=== PATIENT | male | born 1940 | race Caucasian/White ===

== ENCOUNTER 2018-07-26 04:58 | Emergency (ER) | payer MEDICARE, OTHER ==
[2018-07-26 05:20] VITALS: O2SAT 94
[2018-07-26 05:54] LABS: BASOPHIL % 0.1 % (0.0-0.4); Basophil (Absolute #) 0.01 (0-0.4); Eosinophil % 1.5 % (0.00-5.0); Eosinophil (Absolute #) 0.16 (0-0.5); Granulocytes % 76.2 % (36.0-66.0); Hematocrit 41.3 % (42-50); Hemoglobin 13.7 gm/dl (12.5-18.0); Lymphocyte (Absolute #) 1.02 (1.0-4.6); Lymphocytes % 9.5 % (24.0-44.0); Mean Corpuscular Hemoglobin 29.5 pg (26-32); Mean Corpuscular Hgb Concent. 33.2 g/dl (32-36); Mean Platelet Volume 11.2 fl (6-9.5); Monocyte (Absolute #) 1.36 (0.0-1.3); Monocytes % 12.7 % (0.0-12.0); Platelet Count 191 K/mm3 (150-450); Red Blood Count 4.64 M/mm3 (4.1-5.6); Red Cell Distribution Width 14.1 % (11.5-14.0); White Blood Count 10.7 K/mm3 (4.0-10.5)
[2018-07-26 06:00] LABS: ALBUMIN 3.6 g/dL (3.5-5.0); ANION GAP 16.2 MEQ/L (5-15); BILIRUBIN,TOTAL 0.6 mg/dL (0.2-1.3); Creatinine 1 1.27 mg/dL (0.66-1.25); Potassium 4.4 mmol/L (3.5-5.1); Total Protein 6.3 g/dL (6.3-8.2)
--- NOTE | 2018-07-26 06:01 | ERPHSYRPT ---
- History of Present Illness Time Seen by Provider: 07/26/18 05:49 Historian: patient Exam Limitations: no limitations Patient Subjective Stated Complaint: july 21 noticed pain in rt lower rib area that radiates to back. pt went to see chiropractor. pt states he "pulled a rib loose" about 4 years ago and the chiropractor fixed it. this time it didnt work. pt states pain is sometimes absent and sometimes intolerable and pt can't catch his breath or sleep. pt states there were no precipitating factors prior to onset of pain Triage Nursing Assessment: small bruise noted in area pt states hurts. no tenderness reported on palpation. respirations easy and unlabored at this time and pt states he is currently pain free. Physician History: Patient is a 78-year-old who with his complaining of the onset of right sided lower rib pain that began on 07/21/18. The pain has been intermittent. He was not able to sleep tonight because of the pain. Upon entry to the ER, the pain now has resolved. He denies injury or trauma to the region. On he bent over to picker and packer a log for his wood-burning stove and coughed at the same time. He then experienced a sudden onset of this pain. He saw his chiropractor who was not able to provide relief. A similar rib pain happened 5 years ago and his chiropractor was able to provide relief. He denies fever or chills. He denies any problems with eating or urinating. He has been up most of the night with pain. His past medical history significant for any stones, laser ablation of the kidney stones about 5-6 weeks ago, BPH, and DM. He denies any abdominal surgeries. Timing/Duration: day(s) (5), intermittent, resolved prior to arrival, sudden Activities at Onset: none Quality: sharpness, stabbing Location: other (right lower ribs) Chest Pain Radiation: back Severity of Pain-Max: moderate Severity of Pain-Current: none Modifying Factors: Improves With: coughing Associated Symptoms: No nausea, No vomiting, No palpitations, No heartburn, No abdominal pain, No hurts to breathe, No diaphoresis, No fever Prior Chest Pain/Cardiac Workup: no prior chest pain Nitro Today/Relief: no nitro taken today Aspirin Treatment Today: no aspirin today Allergies/Adverse Reactions: No Known Drug Allergies Allergy (Unverified 05/30/14 07:58) Home Medications: Cetirizine HCl [Zyrtec] 10 mg PO DAILY PRN PRN 07/27/13 [History] Aspirin [Aspirin EC] 81 mg PO DAILY 05/30/14 [History] Metformin HCl 500 mg [Glucophage 500 MG] 500 mg PO BIDWM 07/26/18 [History ] Tamsulosin HCl 07/26/18 [History] Hx Tetanus, Diphtheria Vaccination/Date Given: No Hx Influenza Vaccination/Date Given: Yes Hx Pneumococcal Vaccination/Date Given: Yes Immunizations Up to Date: Yes - Review of Systems Constitutional: No Fever, No Chills Eyes: No Symptoms Ears, Nose, & Throat: No Symptoms Respiratory: No Cough, No Dyspnea Cardiac: Chest Pain (rib pain) Abdominal/Gastrointestinal: No Abdominal Pain, No Nausea, No Vomiting, No Diarrhea Genitourinary Symptoms: No Dysuria Musculoskeletal: No Back Pain, No Neck Pain Skin: No Rash Neurological: No Dizziness, No Focal Weakness, No Sensory Changes Psychological: No Symptoms Endocrine: No Symptoms Hematologic/Lymphatic: No Symptoms Immunological/Allergic: No Symptoms All Other Systems: Reviewed and Negative - Past Medical History Pertinent Past Medical History: Yes Neurological History: No Pertinent History ENT History: No Pertinent History Cardiac History: No Pertinent History Respiratory History: No Pertinent History Endocrine Medical History: No Pertinent History Musculoskeletal History: No Pertinent History GI Medical History: No Pertinent History History: No Pertinent History Psycho-Social History: No Pertinent History Male Reproductive Disorders: No Pertinent History Other Medical History: prostate cancer 4 years ago - Past Surgical History Past Surgical History: Yes Neuro Surgical History: No Pertinent History Cardiac: No Pertinent History Respiratory: No Pertinent History Gastrointestinal: No Pertinent History Genitourinary: No Pertinent History Musculoskeletal: No Pertinent History Male Surgical History: No Pertinent History Other Surgical History: tonsils, kidney stone surgery 6 weeks ago - Social History Smoking Status: Never smoker Exposure to second hand smoke: No Drug Use: none Patient Lives Alone: No - Nursing Vital Signs Nursing Vital Signs: Initial Vital Signs Temperature 98.5 F 07/26/18 05:05 Pulse Rate 73 07/26/18 05:05 Respiratory Rate 18 07/26/18 05:05 Blood Pressure 171/84 07/26/18 05:05 O2 Sat by Pulse Oximetry 94 L 07/26/18 05:05 Pain Scale Pain Intensity 1 - Physical Exam General Appearance: no apparent distress, alert Eye Exam: PERRL/EOMI, eyes nml inspection Ears, Nose, Throat Exam: normal ENT inspection, moist mucous membranes Neck Exam: normal inspection, non-tender, supple, full range of motion Respiratory Exam: normal breath sounds, lungs clear, No respiratory distress Cardiovascular Exam: regular rate/rhythm, normal heart sounds Gastrointestinal/Abdomen Exam: soft, normal bowel sounds, No tenderness, No mass Rectal Exam: not done Back Exam: normal inspection, No CVA tenderness, No vertebral tenderness Extremity Exam: normal inspection, normal range of motion Neurologic Exam: alert, oriented x 3, cooperative, normal mood/affect, sensation nml, No motor deficits Skin Exam: normal color, warm, dry SpO2 Interpretation: normal SpO2: 94 Oxygen Delivery: Room Air - Radiology Exams Chest X-ray Interpretation: Interpreted by me, Negative, No Fracture, No Pneumothorax Right Ribs X-ray Interpretation: Interpreted by me, Negative, No Fracture, No Pneumonia Ordered Tests: Active Orders 24 hr Category Date Time Status CHEST 2 VIEWS (PA AND LAT) Stat Exams 07/26/18 06:23 Taken RIBS UNILATERAL Stat Exams 07/26/18 06:23 Taken AMYLASE Stat Lab 07/26/18 05:45 Completed CBC W DIFF Stat Lab 07/26/18 05:45 Completed CMP Stat Lab 07/26/18 05:45 Completed CULTURE,URINE Stat Lab 07/26/18 06:42 Received LIPASE Stat Lab 07/26/18 05:45 Completed TROPONIN Q3H Lab 07/26/18 05:45 Completed TROPONIN Q3H Lab 07/26/18 09:00 Ordered TROPONIN Q3H Lab 07/26/18 12:00 Ordered TROPONIN Q3H Lab 07/26/18 15:00 Ordered TROPONIN Q3H Lab 07/26/18 18:00 Ordered UA W/RFX UR CULTURE Stat Lab 07/26/18 06:42 Completed Lab/Rad Data: Laboratory Result Diagrams 07/26/18 05:45 07/26/18 05:45 Laboratory Results 07/26/18 07/26/18 07/26/18 Range/Units 06:42 05:45 05:45 WBC (4.0-10.5) K/mm3 RBC (4.1-5.6) M/mm3 Hgb (12.5-18.0) gm/dl Hct (42-50) % MCV (78-100) fl MCH (26-32) pg MCHC (32-36) g/dl RDW (11.5-14.0) % Plt Count (150-450) K/mm3 MPV (6-9.5) fl Gran % (36.0-66.0) % Eos # (Auto) (0-0.5) Absolute Lymphs (auto) (1.0-4.6) Absolute Monos (auto) (0.0-1.3) Lymphocytes % (24.0-44.0) % Monocytes % (0.0-12.0) % Eosinophils % (0.00-5.0) % Basophils % (0.0-0.4) % Absolute Granulocytes (1.4-6.9) Basophils # (0-0.4) Sodium 138 (137-145) mmol/L Potassium 4.4 (3.5-5.1) mmol/L Chloride 106 (98-107) mmol/L Carbon Dioxide 20 L (22-30) mmol/L Anion Gap 16.2 H (5-15) MEQ/L BUN 22 H (9-20) mg/dL Creatinine 1.27 H (0.66-1.25) mg/dL Estimated GFR 58.4 ML/MIN Glucose 157 H (74-106) mg/dL Calcium 9.0 (8.4-10.2) mg/dL Total Bilirubin 0.60 (0.2-1.3) mg/dL AST 13 L (17-59) U/L ALT 15 (0-50) U/L Alkaline Phosphatase 92 (38-126) U/L Troponin I < 0.012 (0.000-0.034) ng/mL Serum Total Protein 6.3 (6.3-8.2) g/dL Albumin 3.6 (3.5-5.0) g/dL Amylase 67 (30-110) U/L Lipase 128 (23-300) U/L Urine Color YELLOW (YELLOW) Urine Appearance SLIGHTLY CLOUDY (CLEAR) Urine pH 5.0 (5-6) Ur Specific Tennyson 1.029 (1.005-1.025) Urine Protein 30 (Negative) Urine Ketones NEGATIVE (NEGATIVE) Urine Blood NEGATIVE (0-5) Magdaleno/ul Urine Nitrite NEGATIVE (NEGATIVE) Urine Bilirubin NEGATIVE (NEGATIVE) Urine Urobilinogen NEGATIVE (0-1) mg/dL Ur Leukocyte Esterase NEGATIVE (NEGATIVE) Urine WBC (Auto) 6-10 (0-5) /HPF Urine RBC (Auto) 0-2 (0-2) /HPF U Hyaline Cast (Auto) 0-2 (0-2) /LPF U Epithel Cells (Auto) FEW (FEW) /HPF Urine Bacteria (Auto) RARE (NEGATIVE) /HPF Granular Casts (Auto) 0-2 (NEGATIVE) /LPF Urine Mucus (Auto) MODERATE (NEGATIVE) /HPF Urine Culture Reflexed YES (NO) Urine Glucose NEGATIVE (NEGATIVE) mg/dL 07/26/18 Range/Units 05:45 WBC 10.7 H (4.0-10.5) K/mm3 RBC 4.64 (4.1-5.6) M/mm3 Hgb 13.7 (12.5-18.0) gm/dl Hct 41.3 L (42-50) % MCV 89.0 (78-100) fl MCH 29.5 (26-32) pg MCHC 33.2 (32-36) g/dl RDW 14.1 H (11.5-14.0) % Plt Count 191 (150-450) K/mm3 MPV 11.2 H (6-9.5) fl Gran % 76.2 H (36.0-66.0) % Eos # (Auto) 0.16 (0-0.5) Absolute Lymphs (auto) 1.02 (1.0-4.6) Absolute Monos (auto) 1.36 H (0.0-1.3) Lymphocytes % 9.5 L (24.0-44.0) % Monocytes % 12.7 H (0.0-12.0) % Eosinophils % 1.5 (0.00-5.0) % Basophils % 0.1 (0.0-0.4) % Absolute Granulocytes 8.19 H (1.4-6.9) Basophils # 0.01 (0-0.4) Sodium (137-145) mmol/L Potassium (3.5-5.1) mmol/L Chloride (98-107) mmol/L Carbon Dioxide (22-30) mmol/L Anion Gap (5-15) MEQ/L BUN (9-20) mg/dL Creatinine (0.66-1.25) mg/dL Estimated GFR ML/MIN Glucose (74-106) mg/dL Calcium (8.4-10.2) mg/dL Total Bilirubin (0.2-1.3) mg/dL AST (17-59) U/L ALT (0-50) U/L Alkaline Phosphatase (38-126) U/L Troponin I (0.000-0.034) ng/mL Serum Total Protein (6.3-8.2) g/dL Albumin (3.5-5.0) g/dL Amylase (30-110) U/L Lipase (23-300) U/L Urine Color (YELLOW) Urine Appearance (CLEAR) Urine pH (5-6) Ur Specific Tennyson (1.005-1.025) Urine Protein (Negative) Urine Ketones (NEGATIVE) Urine Blood (0-5) Magdaleno/ul Urine Nitrite (NEGATIVE) Urine Bilirubin (NEGATIVE) Urine Urobilinogen (0-1) mg/dL Ur Leukocyte Esterase (NEGATIVE) Urine WBC (Auto) (0-5) /HPF Urine RBC (Auto) (0-2) /HPF U Hyaline Cast (Auto) (0-2) /LPF U Epithel Cells (Auto) (FEW) /HPF Urine Bacteria (Auto) (NEGATIVE) /HPF Granular Casts (Auto) (NEGATIVE) /LPF Urine Mucus (Auto) (NEGATIVE) /HPF Urine Culture Reflexed (NO) Urine Glucose (NEGATIVE) mg/dL - Progress Progress: unchanged Counseled pt/family regarding: lab results, diagnosis, need for follow-up, rad results - Departure Time of Disposition: 07:00 Departure Disposition: Home Clinical Impression: Abdominal pain, UTI (urinary tract infection) Condition: Stable Critical Care Time: No Referrals: SHY JARQUIN [Primary Care Provider] - Additional Instructions: You had right upper quadrant abdominal pain and right-sided rib pain. The x- ray of the ribs and chest did not show any abnormalities of your bones. Your lab work did show you have a mild UTI. Take Keflex 500 mg 4 times a day for 7 days. If your pain is still coming back, follow-up with Dr. Jarquin. Take Tylenol and ibuprofen as needed for pain. Prescriptions: Cephalexin Monohydrate [Keflex] 500 mg PO QID #28 capsule
[2018-07-26 06:21] VITALS: BP 145/79; PULSE 68
[2018-07-26 06:55] LABS: Appearance SLIGHTLY CLOUDY (CLEAR); Bacteria RARE /HPF (NEGATIVE); Bilirubin NEGATIVE (NEGATIVE); Blood NEGATIVE Ery/ul (0-5); Epithelial Cells FEW /HPF (FEW); Glucose NEGATIVE (NEGATIVE); Granular Casts 0-2 /LPF (NEGATIVE); Hyaline Casts 0-2 /LPF (0-2); Ketones NEGATIVE (NEGATIVE); Leukocyte Esterase NEGATIVE (NEGATIVE); Mucus MODERATE /HPF (NEGATIVE); Nitrite NEGATIVE (NEGATIVE); Protein,Urine Dip 30 (Negative); RBC 0-2 /HPF (0-2); Specific Gravity 1.029 (1.005-1.025); Urobilinogen NEGATIVE mg/dL (0-1)
--- NOTE | 2018-07-26 08:51 | XRAY ---
Indication: Pain. No known injury. Comparison: None 2 views of the right ribs demonstrates mild osteopenia, moderate AC degenerative arthropathy, mild/moderate multilevel thoracolumbar degenerative spondylosis, mild double curvature scoliosis, and mild scattered vascular calcifications. No other bony, articular, or soft tissue abnormalities.
--- NOTE | 2018-07-26 08:53 | XRAY ---
Indication: Right-sided pain. No known injury. Comparison: July 27, 2013. PA/lateral chest remains hyperinflated and clear with again a few incidental calcified granulomas. Heart and mediastinal structures within normal limits. Bony thorax intact again with mild osteopenia, degenerative changes, and mild scoliosis. Impression: Stable nonacute chest with chronic features.
== END 2018-07-26 07:22 | disposition home or self-care (01) ==
LOC: ED 04:58
DX: R10.11 Right upper quadrant pain (principal); N39.0 Urinary tract infection, site not specified; R07.81 Pleurodynia; N40.0 Benign prostatic hyperplasia without lower urinary tract symptoms; E11.9 Type 2 diabetes mellitus without complications; Z79.4 Long term (current) use of insulin; Z79.899 Other long term (current) drug therapy
CPT/HCPCS: 36415; 71046; 71100; 80053; 81001; 82150; 83690; 84484; 85025; 87086; 99284

== ENCOUNTER 2024-11-27 07:08 | Day surgery (SDC) | payer MEDICARE, OTHER ==
[2024-11-27] MEDS ORDERED: Lactated Ringers 1,000 ML IV ONE ×2 (07:17→07:20)
[2024-11-27] MEDS: TETRACAINE 0.5% STERI-UNIT SOL OP ONE ×2 (07:21→07:22)
[2024-11-27] MEDS: Lactated Ringers 1,000 ML IV SCH (07:21)
[2024-11-27] MEDS: Ak-Dilate OPHTHALMIC*** 0.71 ML, Cyclogyl 1% OPHTH SOL 0.71 ML, GATIFLOXACIN 0.5% OPHTH... OP SCH (07:22)
[2024-11-27] MEDS ORDERED: OMIDRIA 1-0.3% VIAL IO NR (09:30)
[2024-11-27] MEDS ORDERED: DEXMEDETOMIDINE 80 MCG/20ML-NS IV NR (09:30)
[2024-11-27] MEDS ORDERED: DEXTENZA OP NR (09:30)
[2024-11-27] MEDS ORDERED: VIGAMOX/BSS 0.15% SYR IO NR (09:30)
[2024-11-27] MEDS ORDERED: BETADINE 5% OPHTHALMIC 30 ML OP NR (09:30)
[2024-11-27] MEDS ORDERED: TRIAMCINOLONE 15 MG/ML INJ INTRAOP NR (09:30)
[2024-11-27] MEDS ORDERED: Zofran 4 MG/2 ML VIAL IV PRN (09:45)
[2024-11-27] MEDS ORDERED: Versed 2 MG/2 ML Injection ONE (10:42)
[2024-11-27] MEDS ORDERED: propofoL IV ONE (10:43)
[2024-11-27] MEDS: ACETAZOLAMIDE 250 MG TABLET PO ONE (11:20)
[2024-11-27 11:27] VITALS: RESP 16; TEMP 97.4
[2024-11-27 11:30] VITALS: BP 166/85; PULSE 53; O2SAT 97
== END 2024-11-27 11:42 | disposition home or self-care (01) ==
LOC: SDC 07:08
PROVIDERS: ATTEND Ophthalmology
DX: H25.812 Combined forms of age-related cataract, left eye (principal); E11.9 Type 2 diabetes mellitus without complications
CPT/HCPCS: 82947; C1780; J1096; J1097; J2250; J2704; A9270-GY